=== PATIENT | female | born 1945 | race Caucasian/White ===

== ENCOUNTER 2021-05-16 16:27 | Emergency (ER) | payer MEDICARE ==
[~2021-05-16] VITALS: Ht 165.1 cm; Wt 56.7 kg
[2021-05-16 16:31] VITALS: BP 127/81
--- NOTE | 2021-05-16 16:36 | NUR ---
PT BIBA TO BED
--- NOTE | 2021-05-16 16:38 | NUR ---
75 Y/O FEMALE B[place]A FROM [place]. PER MEDICS, PT WAS FOUND WANDERING STREETS IN [place] AND IS CONFUSED. PER EMS PT WANDERS OFTEN WITH HX OF DEMENTIA BUT PT DENIES. PT ALERT AND AWAKE. PT CONFUSED, AWARE OF NAME/PLACE. PT REPORTS SHE WAS WALKING HOME AND DOESNT KNOW WHAT HAPPENED. PT HAS NO COMPLAINTS AT THIS TIME. PT LAYING IN BED WITH EVEN AND UNLABORED RESPIRATIONS. PMH: UNK ALLERGIES: UNK
--- NOTE | 2021-05-16 16:38 | NUR ---
Note undone in EDM - 05/16/21 at 1747 by [email or web address] 75 Y/O FEMALE BIBA [place]. PER MEDICS, PT WAS FOUND WANDERING STREETS IN [place] AND IS CONFUSED. PER EMS PT WANDERS OFTEN WITH HX OF DEMENTIA BUT PT DENIES. PT ALERT AND AWAKE. PT CONFUSED, ONLY AWARE OF NAME. PT REPORTS SHE WAS WALKING HOME AND DOESNT KNOW WHAT HAPPENED. PT HAS NO COMPLAINTS AT THIS TIME. PT LAYING IN BED WITH EVEN AND UNLABORED RESPIRATIONS. PMH: UNK ALLERGIES: UNK
--- NOTE | 2021-05-16 16:40 | NUR ---
DR LOPEZ AT BEDSIDE EVALUATING PT
--- NOTE | 2021-05-16 17:41 | NUR ---
Patient discharged with v/s stable. Written and verbal after care instructions ABOUT MEDICAL SCREENING EXAM given and explained. Patient verbalized understanding. Wheel Chair Assisted with to [facility]. All questions addressed prior to discharge. Advised to follow up with PMD.
== END 2021-05-16 17:41 | disposition home or self-care (01) ==
LOC: MED 16:27
DX: Z00.00 Encounter for general adult medical examination without abnormal findings (principal)
CPT/HCPCS: 81002; 99283